=== PATIENT | female | born 1990 | race African-American/Black ===

== ENCOUNTER 2017-11-02 11:31 | Emergency (ER) | payer OTHER ==
[~2017-11-02] VITALS: Ht 160 cm; Wt 54.9 kg
[2017-11-02] MEDS ORDERED: Acetaminophen 500mg (ES) tab ORAL ONE (12:15)
[2017-11-02] MEDS ORDERED: TYLENOL EXTRA500 MG ORAL (12:51)
[2017-11-02] MEDS ORDERED: CYCLOBENZAPRINE10 MG ORAL (12:51)
[2017-11-02] MEDS ORDERED: BACK STABILIZE1 EACH MC (12:51)
[2017-11-02 12:55] VITALS: BP 118/75
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
== END 2017-11-02 12:55 | disposition home or self-care (01) ==
LOC: EMR 12:10
DX: S39.92XA Unspecified injury of lower back, initial encounter (principal); V43.02XA Car driver injured in collision with other type car in nontraffic accident, initial encounter; Y92.410 Unspecified street and highway as the place of occurrence of the external cause; J45.909 Unspecified asthma, uncomplicated
CPT/HCPCS: 99284

== ENCOUNTER 2017-12-13 10:44 | Emergency (ER) | payer OTHER ==
[~2017-12-13] VITALS: Ht 160 cm; Wt 54.4 kg
[~2017-12-13 10:44] MED LIST: BACK STABILIZE1 EACH MC; CYCLOBENZAPRINE10 MG ORAL; TYLENOL EXTRA500 MG ORAL
[2017-12-13 11:02] VITALS: BP 100/68
[2017-12-13] MEDS ORDERED: ROBAXIN-750750 MG PO (11:10)
[2017-12-13] MEDS ORDERED: LIDOCAINE700 M1 TP (11:10)
[2017-12-13 11:33] VITALS: BP 105/72
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
== END 2017-12-13 11:34 | disposition home or self-care (01) ==
LOC: EMR 11:10
DX: M54.5 Low back pain (principal); G89.29 Other chronic pain; J45.909 Unspecified asthma, uncomplicated
CPT/HCPCS: 99283